=== PATIENT | male | born 1935 | race Caucasian/White ===

== ENCOUNTER → 2019-11-02 08:49 | Outpatient (CLI) | payer MEDICARE, OTHER, SELFPAY | PROVIDERS: PCP Family Medicine; Visit Provider Family Medicine | DX: M81.0 Age-related osteoporosis without current pathological fracture (principal); Z85.46 Personal history of malignant neoplasm of prostate | CPT/HCPCS: 77080 ==

== ENCOUNTER 2019-11-16 07:50 | Outpatient (CLI) | payer MEDICARE, OTHER, SELFPAY ==
[2019-11-16] VITALS (11 sets, daily range): BP systolic 104–167; BP diastolic 61–81; PULSE 58–67; RESP 13–16; TEMP 36.3–36.4; O2SAT 99–100
--- NOTE | 2019-11-16 07:52 | DI.RAD.S_ITS ---
PROCEDURE: PAIN L/S TRANSFORAMINAL INJECT INDICATIONS: SPONDYLOSIS FINDINGS: Fluoroscopic spot filming was performed to verify placement of spinal needles at the L4-L5 level(s), as labeled on the films. Appropriate location(s) of the needle tip(s) was confirmed by injection of iodinated contrast. Dictated by: Jurgen Brar M.D. on 11/16/2019 at 11:48 Approved by: Jurgen Brar M.D. on 11/16/2019 at 11:48
[2019-11-16] MEDS: MIDAZOLAM 5 MG/5 ML VIAL IV (09:41)
[2019-11-16] MEDS: BUPIVACAINE 0.25% (PF) VIAL 2 ML INJ (09:51)
[2019-11-16] MEDS: IOPAMIDOL 15 ML VIAL 3 ML INJ (09:51)
[2019-11-16] MEDS: DEXAMETHASONE 10 MG/ML VIAL 20 MG INJ (09:51)
[2019-11-16] MEDS: BETAMETHASONE 30 MG/5 ML MDV 6 MG INJ (09:51)
--- NOTE | 2019-11-16 09:55 | PC.NURSE ---
ASSISTING PT OFF TABLE AND TRANSPORTING TO POST PROC AREA IN STABLE CONDITION. PASSING RN CARE OF PT OFF TO AMARA Santiago RN.
--- NOTE | 2019-11-16 10:00 | P.PCN_ITS ---
Procedures Date/Time Date of procedure: 11/16/19 Time of procedure: 10:01 General Procedure description: PREOP DIAGNOSIS 1. FORMAINAL STENOSIS WITH LE SYMPTOMS POST OP DIAGNOSIS 1. FORMAINAL STENOSIS WITH LE SYMPTOMS PROCEDURES 1. FLUOROSCOPICALLY GUIDED CONTRAST CONTROLLED TRANSFORAMINAL EPIDURAL STEROID INJECTION - RIGHT L4/5 TFESI PHYSICIAN: Mina Velasquez DO INDICATIONS: Zbigniew is referred by for treatment of Foraminal Stenosis with Right LE Symptoms FINDINGS Foraminal Nerve Root Compression secondary to disc disease and facet hypertrophy DESCRIPTION OF PROCEDURE: Following review of allergy and review of potential side effects and complications, including, but not necessarily limited to, infection, allergic reaction, local tissue breakdown, stroke, temporary or permanent nerve injury, paralysis, and possible , the patient indicated that the patient understood and agreed to proceed. An informed consent document was signed by the patient, witnessed by a nurse, and placed in the patient's chart. Additionally, other treatment options including medications, modalities, and physical therapy were reviewed with the patient. After review of previous anaesthesic history and IV conscious sedation the patient was deemed safe to proceed with todays procedure with IV conscious sedation as ASA class II designation. Safety time-out was performed to confirm patient ID, procedure to be performed and site of procedure. IV sedation was accomplished with 1mg of Versed was administered by the RN after DO order, titrated to patient comfort during the course of the procedure while the patient remained responsive to all verbal commands In the prone position following sterile prep and drape of the lumbar region, the right L4/5 posterior neuroforamen was identified fluoroscopically. The skin was anesthetized via a 25-gauge 1.5-inch needle with 0.25% marcaine solution. At this point, a 25-gauge 3.5-inch spinal needle was atraumatically introduced and advanced under fluoroscopic guidance through the posterior right L4/5 neuroforamen to approximately the anterior aspect of the canal. Depth was confirmed on lateral view. Following negative aspiration, injection of approximately 1.5cc of Isovue 200 under live fluoroscopy in the AP view confirmed excellent flow along the nerve root, into the epidural space without vascular or intrathecal uptake observed Radiological data, including multiple fluoroscopic views of the lumbosacral spine, reveal a spinal needle at the right L4/5 posterior neuroforamen. Subsequent views show flow of contrast material flowing superiorly and inferiorly along the nerve root confirming epidural flow. Subsequently, a test dose of 1.5 cc of 1% lidocaine solution was administered and patient was observed for two minutes for signs or symptoms of complications, including abdominal pain, shortness of breath, bilateral upper or lower extremity weakness, nausea and vomiting, prior to steroid injection. At this point, a total of 3cc or 20mg of dexamethasone and 6mg of betamethasone was injected without incident. The procedure tolerated the procedure well without signs or symptoms of complications prior to transfer to the recovery area continued monitoring without incident.The patient was then transferred to the recovery area where they were observed for an appropriate time after the injection. The patient reported a VAS score of 7 prior to the procedure and a post- procedure VAS of 0. Total Fluoroscopy Time: 15 seconds Total Conscious Sedation Time: 24min POST OP INSTRUCTIONS The patient was provided a Pain Log to continue to record their response to the target-specific procedure prior to follow-up visit with their referring physician. Additionally, specific post-injection care instructions and a contact number to our office were provided if concerns arise regarding possible complications associated with the procedure are suspected. Mina Velasquez DO Complications: none
--- NOTE | 2019-11-16 14:00 | PC.NURSE ---
Pt returned after post procedure via [facility]. Arrived alert, and able to transfer from w/c to chair with SB assistance. Resumed monitoring from sarina mae
== END 2019-11-16 10:35 | disposition home or self-care (01) ==
LOC: RAD 07:51
PROVIDERS: PCP Family Medicine; Referring Provider Family Medicine; Visit Provider Physical Medicine & Rehabilitation
DX: M48.062 Spinal stenosis, lumbar region with neurogenic claudication (principal); M51.16 Intervertebral disc disorders with radiculopathy, lumbar region
CPT/HCPCS: 64483; 99152; J0702; J1100; J2250; J3010

== ENCOUNTER 2020-05-21 19:19 | Emergency (ER) | payer MEDICARE, OTHER, SELFPAY ==
[2020-05-21] VITALS (10 sets, daily range): BP systolic 115–153; BP diastolic 63–76; PULSE 52–63; RESP 14–18; TEMP 36.4; O2SAT 92–98; BMI 20.5
--- NOTE | 2020-05-21 19:47 | ED_ITS ---
HPI - Neck Pain/Injury General Chief Complaint: Neck Pain/Injury Stated Complaint: sent by MD to r/o spinal meningitis Time Seen by Provider: 05/21/20 19:24 Source: patient Mode of arrival: Ambulatory Limitations: no limitations History of Present Illness HPI Narrative: 84-year-old male Nonsmoker with history of spinal stenosis and a prior DVT presents with his in the chief complaint of neck pain upon waking today and a questionable low-grade fever. He denies any headache, vomiting, confusion or inappropriate behavior per his . He has had no recent injury or overuse. He was seen by his primary care provider earlier today and encouraged to present to our department for evaluation of possible meningitis. He's had no exposure to persons know or to suspect COVID. He has no blurred vision or trouble with speech. He has no sore throat or ear pain. He has had no chest pain, shortness of breath or cough. He has had no abdominal pain nor nausea, vomiting or diarrhea. The pain is in the paraspinal musculature of his neck and hurts worse when he turns his head side to side. He states his pain is not midline or bony. MD complaint: neck pain Onset (ago): hour(s) Radiation: right lateral and left lateral Severity: moderate Quality: aching Duration: constant Relieving factors: remaining still Exacerbating factors: movement of neck Associated symptoms: fever Treatments prior to arrival: none Related Data Home Medications Medication Instructions Recorded Confirmed cholecalciferol (vitamin D3) 6,000 unit PO QDAY #0 06/10/11 11/16/19 [Vitamin D3] ibuprofen 200 mg PO PRN PRN #0 06/28/17 11/16/19 naproxen sodium 220 mg PO PRN PRN #0 06/28/17 11/16/19 gabapentin [Neurontin] 300 mg PO TID 11/16/19 11/16/19 hydrocodone-acetaminophen [Howard] 5 tab PO Q4HP PRN 11/16/19 11/16/19 Allergies Allergy/AdvReac Type Severity Reaction Status Date / Time Penicillins [PENICILLINS] Allergy Severe CHILDHOOD Verified 05/21/20 19:38 MEMORY sulfamethoxazole Allergy Intermediate (FROM Verified 05/21/20 19:38 [SULFAMETHOXAZOLE] BACTRIM) HIVES trimethoprim [TRIMETHOPRIM] Allergy Intermediate (FROM Verified 08/11/20 19:38 BACTRIM) HIVES KETORALAC Allergy Intermediate RASH Uncoded 01/19/18 13:05 Review of Systems Constitutional Constitutional: Denies chills, Denies fatigue, Reports fever(s) (Tmax 99.4), Denies frequent falls, Denies lethargy and Denies weakness Eyes Eyes: Denies change in vision, Denies eye discharge, Denies irritation and Denies loss of vision ENT Ears, Nose, Mouth, and Throat: Denies change in voice, Denies dizziness, Reports neck pain, Denies sore throat and Denies throat swelling Cardiovascular Cardiovascular: Denies chest pain, Denies irregular heart rhythm, Denies lightheadedness, Denies palpitations, Denies dyspnea, Denies dyspnea on exertion and Denies orthopnea Respiratory Respiratory: Denies cough, Denies dyspnea, Denies dyspnea on exertion and Denies wheezing Gastrointestinal Gastrointestinal: Denies abdominal pain, Denies change in bowel habits, Denies diarrhea, Denies nausea and Denies vomiting Musculoskeletal Musculoskeletal: Reports neck pain and Denies numbness Integumentary/Breasts Skin/Breast: Denies pruritus, Denies erythema, Denies rash and Denies wounds Neurologic Neurologic: Denies behavioral changes, Denies confusion, Denies dizziness, Denies frequent falls, Denies loss of vision, Denies numbness and Denies weakness Psychiatric Psychiatric: Denies anxiety, Denies behavioral changes, Denies confusion, Denies depression, Denies homicidal ideation and Denies suicidal ideation Endocrine Endocrine: Denies fatigue, Denies flushing and Denies palpitations Hematologic/Lymphatic Hematologic/Lymphatic: Denies easy bruising Allergic/Immunologic Allergic/Immunologic: Denies urticaria, Denies throat swelling and Denies wheez ing Patient History Medical History Spinal stenosis, lumbar region with neurogenic claudication (Acute) Spondylolisthesis, lumbar region (Acute) Surgical History Status post appendectomy Family History Brother Age: 84 Pacemaker Heart disease Social History Smoking Status: Unknown if ever smoked Smoking Status: Unknown if ever smoked alcohol intake frequency: holidays/special occasions only Substance Use Type: does not use Exam Narrative Exam Narrative: GENERAL: [84] year old patient appears stated age. Well- nourished, well-developed patient, in mild distress. GCS 15 HEAD: Atraumatic. Normocephalic. EYES: Pupils equal round and reactive. Extraocular motions intact. No scleral icterus. No injection or drainage. ENT: Nose without bleeding, purulent drainage. Throat without erythema, tons illar hypertrophy or exudate. Airway patent. NECK: Trachea midline. No midline bony tenderness. No obvious swelling or deformity. Tenderness to palpation of the paraspinal musculature. Increased p ain when turning head right or left. No increase with axial loading. Negative Kernig's sign CARDIOVASCULAR: Regular rate and rhythm without murmurs, gallops, or rubs. RESPIRATORY: Clear to auscultation. Breath sounds equal bilaterally. No wheezes, rales, or rhonchi. GASTROINTESTINAL: Abdomen soft, non-tender, nondistended. EXTREMITIES: No edema or joint tenderness. BACK: Nontender without deformity or crepitance. No flank tenderness. NEURO: AOx3. SKIN: No rash or erythema of visible areas Initial Vital Signs Initial Vital Signs: Vital Signs Pulse Rate 63 05/21/20 19:37 Blood Pressure 153/74 H 05/21/20 19:37 Pulse Oximetry 97 05/21/20 19:37 Procedures Lumbar Puncture Time Out Performed: Yes Patient Position: upright Skin Prep: 0.5% Chlorhexidine/Alcohol Local Anesthetic: lidocaine 1% Amount of anesthesia used (mL): 4 Spinal Needle Gauge: 22G Interspace Used: L3-L4 Fluid Initially Obtained: clear Complications: none Course Course Course Narrative: patient looking quite well. Ambulating through the department. Thinking clearly and acting appropriate. No sign of sepsis. LP very reassuring. Return precautions given. Questions answered to their apparent satisfaction. Orders Ordered: ED Orders 05/21/20 21:25 Basic Metabolic Panel Stat Complete Blood Count AUTO DIFF Stat 05/22/20 00:15 CSF culture Stat Cell Count w Diff CSF Stat Glucose CSF Stat Meningitis Panel (Film Array) Stat Total Protein CSF Stat Vital Signs Vital signs: Vital Signs - 8 hr 05/21/20 20:00 05/21/20 20:30 05/21/20 21:00 Pulse Rate 58 L 58 L Respiratory Rate 18 Blood Pressure 126/69 129/72 115/63 Pulse Oximetry 96 92 95 05/21/20 21:30 05/21/20 22:00 05/21/20 22:30 Pulse Rate 55 L 55 L 52 L Respiratory Rate Blood Pressure 130/71 124/67 128/70 Pulse Oximetry 95 94 95 05/21/20 23:00 05/21/20 23:30 Pulse Rate 55 L 52 L Respiratory Rate Blood Pressure 124/69 135/70 Pulse Oximetry 96 97 MDM - Neck Pain/Injury Lab Data Result diagrams: 05/21/20 21:25 05/21/20 21:25 Labs: Lab Results 05/21/20 05/21/20 05/22/20 Range/Units 21:25 21:25 00:15 WBC 6.9 (4.5-11.0) X10^3/uL RBC 4.16 L (4.5-5.9) X10^6/uL Hgb 13.3 L (13.5-17.5) g/dL Hct 39.3 L (41-53) % MCV 94.5 (80-100) fL MCH 32.0 (26-34) PG MCHC 33.9 (30-36) % RDW 13.3 (11.6-14.8) % Plt Count 167 (150-400) X10^3/uL Neut % (Auto) 75.4 H (50-75) % Lymph % (Auto) 14.5 L (25-40) % [place] % (Auto) 9.2 (3-14) % Eos % (Auto) 0.5 L (2-4) % Baso % (Auto) 0.4 (0-2) % Neut # (Auto) 5200 (3096-6424) /uL Lymph # (Auto) 1000 L (2077-3196) /uL [place] # (Auto) 600 (0-900) /uL Eos # (Auto) 0 (0-450) /uL Baso # (Auto) 0 (0-100) /uL Sodium 136 L (137-145) mmol/L Potassium 4.3 (3.4-5.1) mmol/L Chloride 107 (98-107) mmol/L Carbon Dioxide 23 (22-32) mmol/L BUN 21 H (9-20) mg/dL Creatinine 0.81 (0.66-1.25) mg/dL Estimated GFR > 60.0 (>60) mL/min BUN/Creatinine Ratio 25.9 H (6-22) Glucose 106 (80-110) mg/dL Calcium 8.2 L (8.4-10.2) mg/dL CSF Tube Number 3 CSF Volume 1.0 ml CSF Appearance Clear (Clear) CSF Color Colorless (Colorless) CSF WBC 1 (0-5) MONO/uL CSF RBC 2 RBC /uL CSF Mononuclear WBCs TNP CSF Polynuclear WBCs TNP CSF Glucose 59 (40-70) mg/dL CSF Total Protein 65 H (12-60) mg/dL CSF C.neoform/gat PCR (Not Detect) CSF CMV DNA (PCR) (Not Detect) CSF Enterovirus (PCR) (Not Detect) CSF E. coli (PCR) (Not Detect) CSF H. influenzae (PCR) (Not Detect) CSF HSV I (PCR) (Not Detect) CSF HSV II (PCR) (Not Detect) CSF HHV 6 (PCR) (Not Detect) CSF L.monocytogenes PCR (Not Detect) CSF N. meningitidis PCR (Not Detect) CSF Parechovirus (PCR) (Not Detect) CSF S. agalactiae (PCR) (Not Detect) CSF S. pneumoniae (PCR) (Not Detect) CSF VZV (PCR) (Not Detecte) 05/22/20 Range/Units 00:15 WBC (4.5-11.0) X10^3/uL RBC (4.5-5.9) X10^6/uL Hgb (13.5-17.5) g/dL Hct (41-53) % MCV (80-100) fL MCH (26-34) PG MCHC (30-36) % RDW (11.6-14.8) % Plt Count (150-400) X10^3/uL Neut % (Auto) (50-75) % Lymph % (Auto) (25-40) % [place] % (Auto) (3-14) % Eos % (Auto) (2-4) % Baso % (Auto) (0-2) % Neut # (Auto) (1720-1715) /uL Lymph # (Auto) (2851-1654) /uL [place] # (Auto) (0-900) /uL Eos # (Auto) (0-450) /uL Baso # (Auto) (0-100) /uL Sodium (137-145) mmol/L Potassium (3.4-5.1) mmol/L Chloride (98-107) mmol/L Carbon Dioxide (22-32) mmol/L BUN (9-20) mg/dL Creatinine (0.66-1.25) mg/dL Estimated GFR (>60) mL/min BUN/Creatinine Ratio (6-22) Glucose (80-110) mg/dL Calcium (8.4-10.2) mg/dL CSF Tube Number CSF Volume CSF Appearance (Clear) CSF Color (Colorless) CSF WBC (0-5) MONO/uL CSF RBC RBC /uL CSF Mononuclear WBCs CSF Polynuclear WBCs CSF Glucose (40-70) mg/dL CSF Total Protein (12-60) mg/dL CSF C.neoform/gat PCR Not detected (Not Detect) CSF CMV DNA (PCR) Not detected (Not Detect) CSF Enterovirus (PCR) Not detected (Not Detect) CSF E. coli (PCR) Not detected (Not Detect) CSF H. influenzae (PCR) Not detected (Not Detect) CSF HSV I (PCR) Not detected (Not Detect) CSF HSV II (PCR) Not detected (Not Detect) CSF HHV 6 (PCR) Not detected (Not Detect) CSF L.monocytogenes PCR Not detected (Not Detect) CSF N. meningitidis PCR Not detected (Not Detect) CSF Parechovirus (PCR) Not detected (Not Detect) CSF S. agalactiae (PCR) Not detected (Not Detect) CSF S. pneumoniae (PCR) Not detected (Not Detect) CSF VZV (PCR) Not detected (Not Detecte) Discharge Plan Departure Patient Disposition: Home Clinical Impression: Acute neck pain Discharge Date/Time: 05/22/20 02:40 Activity Restrictions/Additional Instructions: *You have been diagnosed with [acute neck pain. You were evaluated for meningitis but thankfully there is no evidence of that in the lab work.] *What to do: *Take medications as directed: Tylenol or Motrin for pain *Follow up with your primary care provider in 2-3 days, call for an appointment. Let them know you were seen in the Emergency Department and that we ask that you be seen in follow up *Return to ER if you should have any new, worsening or concerning symptoms Prescriptions: No Action cholecalciferol (vitamin D3) [Vitamin D3] 2,000 unit Tablet 6,000 unit PO QDAY Qty: 0 RF: 0 ibuprofen 200 MG tablet 200 mg PO PRN PRN (Reason: Pain, Moderate) Qty: 0 RF: 0 naproxen sodium 220 MG tablet 220 mg PO PRN PRN (Reason: Pain, Moderate) Qty: 0 RF: 0 hydrocodone-acetaminophen [Howard] 5 MG/325 MG tablet 5 tab PO Q4HP PRN (Reason: Back Pain) RF: 0 gabapentin [Neurontin] 300 MG capsule 300 mg PO TID RF: 0 Referrals: Mina Palm MD [Primary Care Provider] -
[2020-05-21 21:44] LABS: Add Manual Diff / Slide Review NO; Basophils Absolute Auto 0 /uL (0-100); Basophils Percent Auto 0.4 % (0-2); Eosinophils Absolute Auto 0 /uL (0-450); Eosinophils Percent Auto 0.5 % (2-4); Hematocrit 39.3 % (41-53); Hemoglobin 13.3 g/dL (13.5-17.5); Lymphocytes Absolute Auto 1000 /uL (1100-4500); Lymphocytes Percent Auto 14.5 % (25-40); Mean Corpuscular HGB Conc 33.9 % (30-36); Mean Corpuscular Volume 94.5 fL (80-100); Monocytes Absolute Auto 600 /uL (0-900); Monocytes Percent Auto 9.2 % (3-14); Neutrophils Absolute Auto 5200 /uL (1500-7000); Neutrophils Percent Auto 75.4 % (50-75); Platelet Count 167 X10^3/uL (150-400); Red Blood Cell Count 4.16 X10^6/uL (4.5-5.9); Red Cell Distribution Width 13.3 % (11.6-14.8); White Blood Cell Count 6.9 X10^3/uL (4.5-11.0)
[2020-05-21 21:49] LABS: BUN Creatinine Ratio 25.9 (6-22); Blood Urea Nitrogen 21 mg/dL (9-20); Calcium 8.2 mg/dL (8.4-10.2); Carbon Dioxide 23 mmol/L (22-32); Chloride 107 mmol/L (98-107); Estimated Glomerular Filt Rate > 60.0 mL/min (>60); Glucose 106 mg/dL (80-110); HEMOLYSIS < 15 (0-50); Potassium 4.3 mmol/L (3.4-5.1); Sodium 136 mmol/L (137-145)
[2020-05-22 00:43] LABS: Glucose CSF 59 mg/dL (40-70); Total Protein CSF 65 mg/dL (12-60)
[2020-05-22 01:03] LABS: CSF Tube Number 3; CSF Tube Volume 1.0 mL
[2020-05-22 01:04] LABS: Appearance CSF Clear (Clear); Color CSF Colorless (Colorless); Red Blood Cell CSF 2 RBC /uL; White Blood Cell CSF 1 MONO/uL (0-5)
[2020-05-22 02:08] LABS: Enterovirus Not Detected (Not Detect); Escherichia coli K1 Not Detected (Not Detect); Herpes simplex virus 1 Not Detected (Not Detect); Herpes simplex virus 2 Not Detected (Not Detect); Human herpesvirus 6 Not Detected (Not Detect); Neisseria meningitidis Not Detected (Not Detect); Streptococcus agalactiae Not Detected (Not Detect); Streptococcus pneumoniae Not Detected (Not Detect)
[2020-05-22 02:09] LABS: Cryptococcus neoformans/gattii Not Detected (Not Detect); Haemophilus influenzae Not Detected (Not Detect); Human parechovirus Not Detected (Not Detect); Listeria monocytogenes Not Detected (Not Detect); Varicella Zoster Virus Not Detected (Not Detecte)
--- NOTE | 2020-05-22 02:26 | PC.NURSE ---
pt ambulated with a steady gait
== END 2020-05-22 02:40 | disposition home or self-care (01) ==
PROVIDERS: Emergency Provider Emergency Medicine; PCP Family Medicine; Referring Provider Family Medicine
DX: M54.2 Cervicalgia (principal); R50.9 Fever, unspecified; Z03.89 Encounter for observation for other suspected diseases and conditions ruled out
CPT/HCPCS: 36415; 62270; 80048; 82945; 84157; 85025; 87070; 87205; 87798; 89051; 99284

== ENCOUNTER 2021-04-22 11:30 | Day surgery (SDC) | payer MEDICARE, OTHER, SELFPAY ==
[2021-04-22 13:15] LABS: COVID19 -Nasal RAPID Negative (Negative)
[2021-04-22 13:20] VITALS: BMI 20.3
--- NOTE | 2021-04-22 13:30 | PM.PREOP ---
Pre-operative Note Interval Note History & Physical reviewed/Exam performed by Physician: Yes Changes to H&P: No
--- NOTE | 2021-04-22 13:30 | PM.OP.1 ---
Operative Date/Time/Diagnoses Date of procedure: 04/22/21 Pre-op diagnosis: Foreign body in anterior chamber (ozurdex implant) in right eye Post-op diagnosis: same Procedure & Clinicians Procedure: Removal of intraocular foreign body Same procedure as scheduled: Yes Surgeon: Stas Sullivan Operative Notes Procedure in detail: Patient brought to the operating suite. Tetracaine drops placed in the right eye. Patient was prepped and draped in sterile manner. Wire lid speculum was placed in the eye. Betadine drops were placed on the eye. This was irrigated. Lidocaine jelly was placed on the eye. A paracentesis port was created with a side-port blade. The anterior chamber was deepened with viscoelastic. 2.6 mm keratome was used to create a temporal clear corneal incision. Irrigation aspiration handpiece was inserted and ozurdex implant and the viscoelastic was moved near the incision. Kelman forceps was used to remove the implant. The irrigation aspiration handpiece was used to remove the remaining viscoelastic. Incision was hydrated with balanced salt solution and found to be leak free with pressure with Weck-Emily sponges. 0.1 mL Vigamox injected anterior chamber. Lid speculum was removed. The patient left the operating room in excellent condition. Complications: none Post-operative Condition: stable Disposition: same day surgery
[2021-04-22] MEDS: MOXIFLOXACIN INJ 4 MG/0.8 ML VIAL 0.5 MG EYE-OP (13:55)
[2021-04-22] MEDS: LIDOCAINE 2% (GLYDO) 6 ML GEL TOP (13:55)
[2021-04-22] MEDS: PROPARACAINE 0.5% OPHTH SOL 2 DROPS EYE-OP (13:56)
[2021-04-22] MEDS: BALANCED SALT IRRIG SOLN NO.2 500 ML IRR (13:57)
[2021-04-22 14:14] VITALS: BP 139/74; PULSE 55; RESP 16; TEMP 36.6; O2SAT 99
== END 2021-04-22 14:30 | disposition home or self-care (01) ==
PROVIDERS: PCP Family Medicine; Referring Provider Ophthalmology; Visit Provider Ophthalmology
PROC: (CPT 65920; principal; 2021-04-22 14:15)
DX: T85.628A Displacement of other specified internal prosthetic devices, implants and grafts, initial encounter (principal); Z20.822 Contact with and (suspected) exposure to COVID-19
CPT/HCPCS: 65920; 87635; J3010

== ENCOUNTER → 2021-08-06 08:20 | Outpatient (CLI) | payer MEDICARE, OTHER, SELFPAY ==
--- NOTE | 2021-08-06 | DI.ECHO.S_ITS ---
[facility]---------+ [facility] +---------+ : : [address] : : : : [id number] : : : : Phone: [phone] Echocardiogram Report + + :Name: WELLINGTON SINGER Study Date: 08/06/2021 Height: 69 in : :[facility] ReadingLocation: Weight: 143 lb : : Gender: Male BSA: 1.8 m2 : :: 1935 Age: 85 yrs BP: 148/86 mmHg: :Reason For Study: PERICARDIAL EFFUSION : :Ordering Physician: JUJU, : :XUAN Performed By: Rekha Aaron : :Referring: XUAN MATUTE : + + Interpretation Summary Left ventricular systolic function appears normal with an estimated ejection fraction of 55 to 60% without any focal wall motion abnormality. Left ventricular size and wall thickness appear normal. Diastolic function is challenging to assess because of contradictory data but there could be elevated filling pressures. The right ventricle appears normal in size and systolic function. Right ventricular systolic pressure cannot be estimated but CVP is likely around 8 mmHg. There is mild left atrial enlargement and borderline right atrial enlargement. There is mild mitral and mild pulmonic valve regurgitation but no other significant functional valvular abnormality. The ascending aorta is mildly enlarged. There is a trivial circumferential pericardial effusion that measures <0.5 cm. There is no evidence for any tamponade physiology. The patient was in sinus bradycardia at 45-50 bpm during exam. Procedure: A two-dimensional transthoracic echocardiogram with color flow and Doppler was performed. The study quality was technically adequate. There is no prior echocardiogram noted for this patient. The patient was in sinus bradycardia with heart rates between 46-48 bpm during the exam. Left Ventricle: The left ventricle appears normal in size, wall thickness, and systolic function without any focal wall motion abnormalities. The ejection fraction is estimated to be 55-60%. Diastolic function could not be accurately assessed due to contradictory data. Right Ventricle: The right ventricle is normal in size and function. Atria: The left atrium is mildly dilated. The right atrium is borderline dilated. There is no Doppler evidence for an interatrial shunt. Mitral Valve: The mitral valve leaflets appear normal. There is no evidence of stenosis, fluttering, or prolapse. There is mild mitral regurgitation. Aortic Valve: The aortic valve is trileaflet. The aortic valve is slightly calcified. The aortic valve opens well. There is no aortic valve stenosis. No aortic regurgitation is present. Tricuspid Valve: The tricuspid valve is normal in structure and function. There is trace tricuspid regurgitation. Pulmonary artery pressures cannot be estimated because of the lack of a measurable TR jet velocity but the IVC suggests a CVP of around 8 mmHg. Pulmonic Valve: The pulmonic valve leaflets are thin and pliable; valve motion is normal. There is mild pulmonic regurgitation. Great Vessels: The aortic root is normal size. The ascending aorta is mildly enlarged. The IVC is dilated (diameter is greater than 2.1 cm) yet it collapses greater than 50% with a sniff. This suggests a right atrial pressure of 8 mm Hg. Pericardium/ Pleura There is a trivial pericardial effusion noted. There is a trace pericardial effusion that is circumferential. Pericardial effusion measures 0.36cm in parasternal short axis views. There are no echocardiographic or Doppler indications for cardiac tamponade. There is no pleural effusion. MMode/2D Measurements & Calculations LVIDd: 5.2 cm LVOT diam: 2.4 cm LVIDs: 3.5 cm Ao root diam: 3.4 cm FS: 33.1 % asc Aorta Diam: 3.7 cm IVSd: 1.0 cm Ao Arch Diam (Prox Trans): 2.6 cm LVPWd: 0.98 cm LV argueta. diameter/BSA (cm/m^2): 2.9 LV sys. diameter/BSA (cm/m^2): 1.9 LA A2 area: 22.2 cm2 RA long axis: 5.6 cm LA A4 area: 17.9 cm2 RA area: 18.8 cm2 LA length (vol): 4.9 cm RA vol: 53.2 ml LA vol: 69.0 ml RA : 29.7 ml/m2 LA vol index: 38.5 ml/m2 IVC diam: 2.1 cm RVD1 (basal): 3.5 cm TAPSE: 2.5 cm Doppler Measurements & Calculations Ao V2 max: 129.1 cm/sec LVOT Max Alex: 83.2 cm/sec Ao V2 mean: 89.7 cm/sec LV V1 max P.8 mmHg Ao max P.7 mmHg LV V1 VTI: 23.5 cm Ao mean P.7 mmHg IFRAH(I,D): 3.4 cm2 Ao V2 VTI: 32.1 cm IFRAH(V,D): 3.0 cm2 sev ratio: 0.73 IFRAH indexed to BSA (cm^2/m^2): 1.9 MV E max alex: 69.2 cm/sec PA V2 max: 74.7 cm/sec MV A max alex: 60.9 cm/sec PA V2 mean: 47.6 cm/sec MV E/A: 1.1 PA mean P.0 mmHg Med Peak E' Alex: 5.4 cm/sec PA pr(Accel): 34.5 mmHg E/E' med: 12.7 Lat Peak E' Alex: 6.3 cm/sec E/E' lat: 11.0 E/e' average: 11.9 MV dec time: 0.24 sec SV(LVOT): 108.5 ml Reading Physician:11:06 AM
== END ==
PROVIDERS: PCP Family Medicine; Referring Provider Family Medicine; Visit Provider Family Medicine
DX: I34.0 Nonrheumatic mitral (valve) insufficiency (principal); I37.1 Nonrheumatic pulmonary valve insufficiency; I31.3 Pericardial effusion (noninflammatory); I77.89 Other specified disorders of arteries and arterioles
CPT/HCPCS: 93306

== ENCOUNTER → 2024-09-19 08:28 | Outpatient (CLI) | payer MEDICARE, OTHER, SELFPAY ==
--- NOTE | 2024-09-19 08:32 | DI.US.S_ITS ---
PROCEDURE: US PERIPH VENOUS LOW EXTREM LT INDICATIONS: HX OF DVT, LEFT LEG PAIN TECHNIQUE: Real-time imaging, as well as color and pulse Doppler interrogation, were performed of the lower extremity deep veins from the inguinal ligament to the popliteal fossa, with documentation of the visualized calf veins. COMPARISON: None. FINDINGS: The common femoral, femoral, popliteal, and the visualized calf veins are normally compressible, and free of intraluminal thrombus. Color and pulse Doppler demonstrate normal phasic intraluminal flow. There is normal augmentation response to distal compression maneuver. An apparent complex Mathew's cyst can be seen measuring 11.1 x 1.9 x 2.7 cm. There is area superficial thrombophlebitis can be seen within a superficial varicosity of the anterior/lateral proximal leg. IMPRESSION: No findings of lower extremity deep venous thrombosis. An area of superficial thrombophlebitis is seen within the superficial varicosity within the anterior/lateral proximal leg. A prominent complex Mathew's cyst is also seen. Dictated by: Saturnino Brar M.D. on 09/19/2024 at 9:05 Approved by: Saturnino Brar M.D. on 09/19/2024 at 9:06
== END ==
PROVIDERS: PCP Family Medicine; Referring Provider Family Medicine; Visit Provider Family Medicine
DX: I83.813 Varicose veins of bilateral lower extremities with pain (principal); I80.02 Phlebitis and thrombophlebitis of superficial vessels of left lower extremity; M71.22 Synovial cyst of popliteal space [Baker], left knee; M79.605 Pain in left leg; M79.89 Other specified soft tissue disorders; Z86.718 Personal history of other venous thrombosis and embolism
CPT/HCPCS: 93971